=== PATIENT | male | born 1990 | race Caucasian/White ===

== ENCOUNTER 2020-09-05 17:24 | Emergency (ER) | payer OTHER, SELFPAY ==
[2020-09-05 17:34] VITALS: BP 109/70; PULSE 100; RESP 16; TEMP 37.8; O2SAT 99
--- NOTE | 2020-09-05 17:35 | ED.URI ---
HPI - URI/Sore Throat General Chief Complaint: Upper Respiratory Infection Stated Complaint: RUNNY NOSE/COUGH/SORE THROAT Source: patient and RN notes reviewed Limitations: no limitations History of Present Illness HPI Narrative: The patient, a smoker/nondrinker here with other sick family members, presents with sore throat and cough. He has not had Covid vaccination nor known disease. Patient states he has 1/2-week history of nasal congestion, chills and cough. No fever taken, vomiting/diarrhea, loss of taste/smell, wheezing, CP, travel, SOB ,sputum changes. Symptoms are mild somewhat worsened night, intruding on sleep. Point of care test for rapid Covid, influenza is negative. Related Data Allergies Allergy/AdvReac Type Severity Reaction Status Date / Time codeine AdvReac Gastrointestinal Verified 09/05/20 17:31 Upset BUPROPION HCL Allergy Mild HIVES Uncoded 02/03/19 14:44 Review of Systems Review of Systems: Narrative: General/Constitutional: No weight loss,fever Eyes: N0: Redness,discharge Ears/Nose/Throat: No: Epistaxis,ear discharge Respiratory: Denies: Hemoptysis Gastrointestinal: No Vomiting, Bleeding-rectal Skin: No Lumps, eruption Neurologic: No Focal Weakness,Sz Hematologic: Denies: Petechiae/Purpura Psychiatric: No: Suicida ideationl All Other Systems: Reviewed and Negative PMFSH Past Medical History Medical History (Updated 09/08/20 @ 08:54 by Varghese Martinez MD) Anxiety Attention deficit hyperactivity disorder (ADHD), combined type, moderate Chronic anxiety Encounter for wellness examination in adult Gastro-esophageal reflux disease without esophagitis Hypercalcemia Hypoglycemia Irritable bowel syndrome with diarrhea PTSD (post-traumatic stress disorder) Right sided sciatica Tobacco use disorder, continuous Social History Social History (Updated 05/23/20 @ 09:35 by Nadya Rothman MA) Years smoked: 15 Smoking status: Current every day smoker ( 1 pack of cigarettes weekly) Tobacco type: cigarettes Alcohol intake: never Substance use: current Substance use type: marijuana Comments At time of signature, agree with nursing past medical, surgical, social and family history. There is no relevant family history pertinent to the presenting complaint Exam Narrative: Exam Narrative: General Appearance: Well appearing, Well nourished EYE: PERRLA, Conjunctiva clear Ears: Auditory canal normal, TM normal Nose: Rhinorrhea, Mucousal erythema Mouth/Throat: MM moist, Uvula midline, Pharyngeal erythema Neck: Supple, No adenopathy Respiratory: No respiratory distress, Breath sounds equal, Clear to auscultation Cardiovascular: RRR, No JVD Musculoskeletal: Non tender, Normal strength Skin: Warm, Dry Neurological: A&O x3, CN II-XII intact Psychiatric: Normal mood, Normal affect Course Vital Signs Vital signs: Vital Signs Temperature 100.0 F H 09/05/20 17:34 Pulse Rate 100 09/05/20 17:34 Respiratory Rate 16 09/05/20 17:34 Blood Pressure 109/70 09/05/20 17:34 Pulse Oximetry 99 09/05/20 17:34 Temperature 100.0 F H 09/05/20 17:34 Pulse Rate 100 09/05/20 17:34 Respiratory Rate 16 09/05/20 17:34 Blood Pressure 109/70 09/05/20 17:34 Pulse Oximetry 99 09/05/20 17:34 MDM - URI/Sore Throat Lab Data Labs: Lab Results 09/05/20 Range/Units 17:37 POC SARS CoV-2 Ag Negative (Negative) Discharge Plan Discharge Clinical Impression: Influenza-like illness Fever Qualifiers: Fever type: unspecified Qualified Code(s): R50.9 - Fever, unspecified Patient Disposition: Home, Self-Care Condition: Stable Instructions: Antibiotic Form Additional Instructions: Try OTC supplements like vitamins D, C, B and zinc also Prescriptions: New azithromycin 250 mg tablet See Rx Instructions .ROUTE .COMPLEX Qty: 6 RF: 0 codeine-guaifenesin 10-100 mg/5 mL liquid 7.5 ml PO Q6H PRN (Reason: cough) Qty: 118 RF:
== END 2020-09-05 18:10 | disposition home or self-care (01) ==
PROVIDERS: Emergency Provider Emergency Medicine; PCP Family Medicine
DX: J10.1 Influenza due to other identified influenza virus with other respiratory manifestations (principal); R50.9 Fever, unspecified; Z20.822 Contact with and (suspected) exposure to COVID-19; F17.210 Nicotine dependence, cigarettes, uncomplicated; K21.9 Gastro-esophageal reflux disease without esophagitis; F90.9 Attention-deficit hyperactivity disorder, unspecified type; F41.9 Anxiety disorder, unspecified; F43.10 Post-traumatic stress disorder, unspecified
CPT/HCPCS: 87426; 87804; 99213; C9803; G0463

== ENCOUNTER 2022-09-12 11:12 | Emergency (ER) | payer OTHER, SELFPAY ==
[2022-09-12 11:42] VITALS: BP 157/99; PULSE 92; RESP 16; TEMP 37.5; O2SAT 100
--- NOTE | 2022-09-12 12:27 | ED.URI ---
HPI - URI/Sore Throat General Chief Complaint: Upper Respiratory Infection Stated Complaint: sore mouth/thoat; cough; fever; runny nose Time Seen by Provider: 09/12/22 12:27 Source: patient and RN notes reviewed Mode of arrival: ambulatory Limitations: no limitations History of Present Illness HPI Narrative: 32-year-old male presented for complaint of sinus congestion drainage, sore throat, cough, worsening over the past 2 days. He took a dose of an antihistamine without change in symptoms. He denies shortness of breath, wheezing, nausea, vomiting, fevers or chills. Has not taken anything for symptoms. denies sick contacts. MD elicited complaint: cough Related Data Allergies Allergy/AdvReac Type Severity Reaction Status Date / Time codeine AdvReac Gastrointestinal Verified 09/12/22 11:54 Upset BUPROPION HCL Allergy Mild HIVES Uncoded 09/12/22 11:54 Review of Systems Review of Systems: CONSTITUTIONAL: Endorses fever EYES: Denies visual changes, redness, or discharge ENT: Reports rhinorrhea, congestion, sore throat CARDIOVASCULAR: Denies chest pain, palpitations, edema RESPIRATORY: Reports cough, post nasal drainage. Denies dyspnea GASTROINTESTINAL: Denies abdominal pain, nausea, vomiting, diarrhea SKIN: Denies rash or itching MUSCULOSKELETAL: Denies myalgia PMFSH Past Medical History Medical History Attention deficit hyperactivity disorder (ADHD), combined type, moderate BMI 28.0-28.9,adult Chronic anxiety Encounter for wellness examination in adult Fever Gastro-esophageal reflux disease without esophagitis Hypercalcemia Calcium elevated at 10.6 on 03/27/2020. Hypoglycemia glucose 50 on 03/27/2020. 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) Right sided sciatica Tobacco use disorder, continuous Vaping nicotine dependence, tobacco product twice daily Social History Social History Years smoked: 15 Smoking status: Current every day smoker Tobacco type: e-cigarettes/vaping Alcohol intake: never Substance use: former Substance use type: former substance user Current Housing: Decline to Answer Concerned About Future Housing: Decline to Answer Difficulty Paying Gas/Electric Bills: Decline to Answer Difficulty Paying for Meds: Decline to Answer Currently Unemployed: Decline to Answer Education: Decline to Answer Difficulty w/ Childcare or Family Care: Decline to Answer Exam Narrative: GENERAL: mildly Ill-appearing, nontoxic no acute distress. HEAD: Normocephalic EYES: PERRLA, conjunctivae clear ENT: Mucous membranes moist. TM pearly nguyen with dull light reflex bilaterally; no tragal tenderness. Oropharynx erythematous without lesions or exudate, no drooling, no hoarseness, no trismus, uvula midline. No tripod positioning, muffled voice, soft palate or pharyngeal wall bulging NECK: Supple. No lymphadenopathy CHEST: Clear to auscultation, breath sounds equal. No wheezing, rhonchi, rales, or stridor. No respiratory distress, speaks in full sentences. HEART: Regular rate and rhythm. No murmur heard. SKIN: Warm, dry, no rash. NEURO: Alert and oriented x3. PSYCH: flat affect Course Course Emergency Course: Patient is aware of diagnosis, understands and agrees to treatment plan. Anticipatory guidance given. Patient agrees to follow-up as directed and is aware of reasons to seek care at the emergency department. Portions of this record may have been created with voice recognition software Level of Care: Express Care Visit Vital Signs Vital signs: Vital Signs Temperature 99.5 F 09/12/22 11:42 Pulse Rate 92 09/12/22 11:42 Respiratory Rate 16 09/12/22 11:42 Blood Pressure 157/99 H 09/12/22 11:42 Pulse Oximetry 100 09/12/22 11:42 Oxygen Delivery Room
== END 2022-09-12 12:48 | disposition home or self-care (01) ==
PROVIDERS: Emergency Provider Nurse Practitioner Family; PCP Family Medicine
DX: J02.9 Acute pharyngitis, unspecified (principal); Z20.822 Contact with and (suspected) exposure to COVID-19; F17.290 Nicotine dependence, other tobacco product, uncomplicated; F90.9 Attention-deficit hyperactivity disorder, unspecified type; F41.9 Anxiety disorder, unspecified; K21.9 Gastro-esophageal reflux disease without esophagitis
CPT/HCPCS: 87081; 87426; 87804; 87880; 99213; C9803; G0463

== ENCOUNTER 2022-11-24 12:22 | Emergency (ER) | payer OTHER, SELFPAY ==
--- NOTE | 2022-11-24 12:23 | ED.SKABFB ---
HPI - Skin/Abscess/Foreign Bdy General Chief complaint: Skin/Abscess/Foreign Body Stated complaint: Rash Time Seen by Provider: 11/24/22 12:22 Source: patient Mode of arrival: ambulatory Limitations: no limitations History of Present Illness HPI narrative: Mr. Hernandez is a 32-year-old male patient presenting to clinic today with complaints of a rash to his face, left hand, low back, and behind his ears times 1-2 days. He reports he thinks he may have gotten into poison luis when doing yd work. States the rash is itching and painful. Related Data Allergies Allergy/AdvReac Type Severity Reaction Status Date / Time codeine AdvReac Gastrointestinal Verified 09/12/22 11:54 Upset BUPROPION HCL Allergy Mild HIVES Uncoded 09/12/22 11:54 Review of Systems Review of Systems: Pertinent positives per HPI. Patient denies any fever, chills, rash, headache, visual changes, dizziness, cough, runny nose, sore throat, shortness of breath, chest pain, palpitations, nausea, vomiting, diarrhea, constipation, abdominal pain, or any urinary issues. PMFSH Past Medical History Medical History Attention deficit hyperactivity disorder (ADHD), combined type, moderate BMI 28.0-28.9,adult Chronic anxiety Encounter for wellness examination in adult Fever Gastro-esophageal reflux disease without esophagitis Hypercalcemia Calcium elevated at 10.6 on 03/27/2020. Hypoglycemia glucose 50 on 03/27/2020. 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) Right sided sciatica Tobacco use disorder, continuous Vaping nicotine dependence, tobacco product twice daily Social History Social History Years smoked: 15 Smoking status: Current every day smoker Tobacco type: e-cigarettes/vaping Alcohol intake: never Substance use: former Substance use type: former substance user Current Housing: Decline to Answer Concerned About Future Housing: Decline to Answer Difficulty Paying Gas/Electric Bills: Decline to Answer Difficulty Paying for Meds: Decline to Answer Currently Unemployed: Decline to Answer Education: Decline to Answer Difficulty w/ Childcare or Family Care: Decline to Answer Comments At the time of my signature, I reviewed and agree with the nursing past medical, surgical, social, and family history. There is no relevant family history pertinent to the patient complaint. Exam Narrative: General: Well-developed, well nourished, in no apparent distress Head: Normocephalic, atraumatic. Cardio: Regular rate and rhythm, s1 and s2 normal, no murmur appreciated. Resp: Clear to auscultation bilaterally, no rhonchi, rales, wheezing or rubs. Integumentary: [place], warm, and dry, red, raised, blister itchy/burning rash to the forehead, behind bilateral ears, on left hand, and on the low back Course Course Emergency Course: Portions of this record may have been created with voice recognition software. Level of Care: Express Care Visit Vital Signs Vital signs: Vital signs reviewed MDM - Skin/Abscess/Foreign Bdy MDM Narrative Medical decision making narrative: At the time of visit patient is resting comfortably on exam table. Dexamethasone 10 mg IM was given in the clinic today. Taper dose of prednisone was sent to the pharmacy and triamcinolone cream. Supportive measures were discussed with the patient he voiced understanding discharge instructions agrees to treatment plan. Differential Diagnosis Differential diagnosis: Likely abscess of skin or subcutaneous tissue, cellulitis, eczema, insect bites, impetigo and contact dermatitis Discharge Plan Discharge Clinical Impression: Allergic contact dermatitis due to plant Patient Disposition: Home, Self-Care Condition: Stable Instructions: Antibiotic Form,
[2022-11-24 12:49] VITALS: BP 128/84; PULSE 88; RESP 18; TEMP 36.9; O2SAT 100
== END 2022-11-24 12:56 | disposition home or self-care (01) ==
PROVIDERS: Emergency Provider Nurse Practitioner Family; PCP Family Medicine
DX: L23.7 Allergic contact dermatitis due to plants, except food (principal); F17.290 Nicotine dependence, other tobacco product, uncomplicated; F90.9 Attention-deficit hyperactivity disorder, unspecified type
CPT/HCPCS: 96372; 99213; G0463; J1100

== ENCOUNTER 2022-12-08 16:49 | Emergency (ER) | payer OTHER, SELFPAY ==
[2022-12-08 16:57] VITALS: BP 123/78; PULSE 98; RESP 18; TEMP 36.3; O2SAT 99
--- NOTE | 2022-12-08 16:59 | ED.SKABFB ---
HPI - Skin/Abscess/Foreign Bdy General Chief complaint: Skin/Abscess/Foreign Body Stated complaint: Rash Time Seen by Provider: 12/08/22 17:02 Source: patient and RN notes reviewed Mode of arrival: ambulatory Limitations: no limitations History of Present Illness HPI narrative: 32 year male presents with concern for ongoing rash on his penis. He reports he was seen 2 weeks ago and treated for poison luis dermatitis with steroids, steroid injection, steroid cream. Reports the rash has resolved except for area on his penis which continues to be itchy and is now become slightly swollen and tender. He reports he continues to use triamcinolone on the area MD complaint: rash Related Data Allergies Allergy/AdvReac Type Severity Reaction Status Date / Time codeine AdvReac Gastrointestinal Verified 09/12/22 11:54 Upset BUPROPION HCL Allergy Mild HIVES Uncoded 09/12/22 11:54 Review of Systems Review of Systems: CONSTITUTIONAL: Denies malaise, chills, sweats, or fever. RESPIRATORY: Denies cough or dyspnea. SKIN: Reports rash on his penis All systems reviewed & are unremarkable except as noted in HPI and below PMFSH Past Medical History Medical History Attention deficit hyperactivity disorder (ADHD), combined type, moderate BMI 28.0-28.9,adult Chronic anxiety Encounter for wellness examination in adult Fever Gastro-esophageal reflux disease without esophagitis Hypercalcemia Calcium elevated at 10.6 on 03/27/2020. Hypoglycemia glucose 50 on 03/27/2020. 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) Right sided sciatica Tobacco use disorder, continuous Vaping nicotine dependence, tobacco product twice daily Social History Social History Years smoked: 15 Smoking status: Current every day smoker Tobacco type: e-cigarettes/vaping Alcohol intake: never Substance use: former Substance use type: former substance user Current Housing: Decline to Answer Concerned About Future Housing: Decline to Answer Difficulty Paying Gas/Electric Bills: Decline to Answer Difficulty Paying for Meds: Decline to Answer Currently Unemployed: Decline to Answer Education: Decline to Answer Difficulty w/ Childcare or Family Care: Decline to Answer Comments At time of signature, agree with nursing past medical, surgical, social and family history. There is no relevant family history pertinent to the presenting complaint Exam Narrative: GENERAL: Well-appearing, well-nourished, and in no acute distress. HEAD: Normocephalic, atraumatic. EYES: PERRLA, conjunctivae clear, and EOMI. ENT: Mucous membranes moist. Oropharynx without edema, erythema or lesions. NECK: Supple. No lymphadenopathy CHEST: Clear to auscultation. No respiratory distress. HEART: Regular rate and rhythm. SKIN: Warm, dry. Raise patch of erythematous plaque with mild amount of erythema and induration surrounding noted to the shaft of the penis. No rash or excoriation noted in the groin NEURO: Alert and oriented x3. PSYCH: Normal mood and affect Course Course Emergency Course: Patient is aware of diagnosis, understands and agrees to treatment plan. Anticipatory guidance given. Patient agrees to follow-up as directed and is aware of reasons to seek care at the emergency department. Portions of this record may have been created with voice recognition software Level of Care: Express Care Visit Vital Signs Vital signs: Vital Signs Temperature 97.4 F L 12/08/22 16:57 Pulse Rate 98 12/08/22 16:57 Respiratory Rate 18 12/08/22 16:57 Blood Pressure 123/78 12/08/22 16:57 Pulse Oximetry 99 12/08/22 16:57 Oxygen Delivery Room Air 12/08/22 16:57 Temperature 97.4 F L 12/08/22 16:57 Pulse Rate 98 12/08/22 16:57 Resp
== END 2022-12-08 17:18 | disposition home or self-care (01) ==
PROVIDERS: Emergency Provider Nurse Practitioner; PCP Family Medicine
DX: L30.9 Dermatitis, unspecified (principal); N48.29 Other inflammatory disorders of penis; K21.9 Gastro-esophageal reflux disease without esophagitis; F17.290 Nicotine dependence, other tobacco product, uncomplicated
CPT/HCPCS: 99213; G0463

== ENCOUNTER 2022-12-27 16:29 | Emergency (ER) | payer OTHER, SELFPAY ==
--- NOTE | ~2022-12-27 | CT_ITS ---
EXAMINATION: CTA chest DATE: 12/27/2022 18:07 INDICATION: Tearing central chest pain radiating between shoulder blades TECHNIQUE: Computed tomographic angiography (CTA) of the chest was performed without and with 100 mL Omnipaque-350 intravenous contrast. Volume-rendered 3D-reconstructions of the aorta and large arterie s were constructed by the technologist on a separate workstation. Automated exposure control and iter ative reconstruction technique were employed. The dose-length product was 623.96 mGy-cm. COMPARISON: None. FINDINGS: Lungs are clear with no pulmonary edema, pneumonia or other pulmonary infiltrates. No pleural effusio n or pneumothorax. Heart size is normal. No pericardial effusion. Thoracic aorta is normal in caliber with no evident atherosclerotic plaque or dissection. Bilateral gynecomastia. No pathologically enla rged abdominal or pelvic lymphadenopathy. Visualized upper abdomen is unremarkable. Mild upper thorac ic levocurvature. IMPRESSION: 1. Normal thoracic aorta with no dissection. No other acute cardiopulmonary disease. Reviewed, dictated and finalized at location A. IMPRESSION: 1. Normal thoracic aorta with no dissection. No other acute cardiopulmonary dis ease.
[2022-12-27 16:31] VITALS: BP 137/95; PULSE 82; RESP 18; TEMP 36; O2SAT 100
--- NOTE | 2022-12-27 16:33 | ECG_ITS ---
Measurements Intervals [place] Rate: 81 P: 75 MS: 147 QRS: 41 QRSD: 98 T: 49 QT: 354 QTc: 412 Interpretive Statements SINUS RHYTHM WITH SINUS ARRHYTHMIA BORDERLINE ECG NO PREVIOUS ECG AVAILABLE FOR COMPARISON Electronically Signed On 12-28-2022 11:58:03 CDT by Varghese Durbin M.D.
[2022-12-27 16:47] VITALS: O2SAT 100
[2022-12-27 16:49] VITALS: O2SAT 100
[2022-12-27 16:53] VITALS: BP 123/92; PULSE 76; PULSE 81; RESP 18; O2SAT 100
--- NOTE | 2022-12-27 17:28 | ED.GENADULT ---
HPI - General Adult General Chief complaint: Chest Pain Stated complaint: 1.5 months chest tightness Time Seen by Provider: 12/27/22 17:06 Source: patient Mode of arrival: ambulatory Limitations: no limitations History of Present Illness HPI narrative: This is a 32-year-old male with PMH of anxiety, IBS, ADHD who presents to the ED with chief complaint of chest pain ongoing for the past 1.5 months. Patient states that he has a ripping, tearing pain in the central chest that will occasionally radiates to his back. He states this pain is intermittent. Reports that he also feels a separate pain in his back around his intrascapular area. Reports that radiates to the left. He states that he is very anxious about what is causing his chest pain. He states he has been seen by his primary care doctor and a burnisher and has had 9 negative cardiac markers, stress test, EKGs, x-rays but he would like answers today. He states he is very stressed recently and has been trying to change his ADHD medications. Currently taking Vyvanse. Denies hemoptysis, cough, fevers, chills, shortness of breath, vomiting, abdominal pain. Related Data Allergies Allergy/AdvReac Type Severity Reaction Status Date / Time codeine AdvReac Gastrointestinal Verified 12/27/22 16:49 Upset BUPROPION HCL Allergy Mild HIVES Uncoded 12/27/22 16:49 Review of Systems Review of Systems: All systems as dictated in [facility] Past Medical History Medical History Attention deficit hyperactivity disorder (ADHD), combined type, moderate BMI 28.0-28.9,adult Chest pain due to psychological stress Chronic anxiety Encounter for wellness examination in adult Fever Gastro-esophageal reflux disease without esophagitis Genital herpes Hypercalcemia Calcium elevated at 10.6 on 03/27/2020. Hypoglycemia glucose 50 on 03/27/2020. 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) Right sided sciatica Tobacco use disorder, continuous Vaping nicotine dependence, tobacco product twice daily Social History Social History (Updated 12/22/22 @ 15:32 by Nadya Rothman MA) Years smoked: 15 Smoking status: Current every day smoker Tobacco type: cigarettes Alcohol intake: never Substance use: former Substance use type: former substance user Current Housing: Decline to Answer Concerned About Future Housing: Decline to Answer Difficulty Paying Gas/Electric Bills: Decline to Answer Difficulty Paying for Meds: Decline to Answer Currently Unemployed: Decline to Answer Education: Decline to Answer Difficulty w/ Childcare or Family Care: Decline to Answer Exam Narrative: GENERAL: Well-appearing, well-nourished, and in no acute distress. HEAD: Normocephalic, atraumatic. EYES: PERRLA and EOMI. ENT: Nares clear, no rhinorrhea or epistaxis. Mucous membranes moist. Oropharynx without tonsillar hypertrophy exudate or other lesions. NECK: Supple. No adenopathy or masses. CHEST: No respiratory distress. Clear to auscultation. No wheezes rales or rhonchi HEART: Regular rate and rhythm. No murmur heard. Normal peripheral pulses. ABDOMEN: Soft, nontender, nondistended, normal active bowel sounds. MSK: Normal range of motion. No edema. SKIN: Warm, dry, no rash. NEURO: Alert and oriented x3. No focal deficits. PSYCH: Anxious mood. Appropriate affect. Course Vital Signs Vital signs: Vital Signs Temperature 96.8 F L 12/27/22 16:31 Pulse Rate 82 12/27/22 16:31 Respiratory Rate 18 12/27/22 16:31 Blood Pressure 137/95 H 12/27/22 16:31 Pulse Oximetry 100 12/27/22 16:31 Oxygen Delivery Room Air 12/27/22 16:31 Temperature 96.8 F L 12/27/22 16:31 Pulse Rate 89 12/27/22 18:08 Respiratory Rate 23 H 12/27/22 18:08 Blood Pressure 117/98 H 12/27/22 18:08 Pulse Oximetry 100 12/27
[2022-12-27 17:31] VITALS: BP 132/99; PULSE 77; RESP 22; O2SAT 100
[2022-12-27 17:51] LABS: Basophils Percent Auto 0.6 % (0.2-1.2); Eosinophils Absolute Auto 0.1 K/mm3 (0-0.3); Eosinophils Percent Auto 2.1 % (0-4.4); Hemoglobin 16.7 g/dL (14.0-18.0); Immature Granulocyte Absolute 0.01 K/mm3 (0.00-0.031); Immature Granulocyte Percent A 0.1 % (0-0.5); Mean Corpuscular HGB Conc 32.7 g/dl (32-36); Mean Corpuscular Hemoglobin 29.6 pg (26-34); Mean Corpuscular Volume 90.3 fl (80-100); Mean Platelet Volume 9.2 fl (7.4-10.4); Monocytes Absolute Auto 0.5 K/mm3 (0.1-0.6); Monocytes Percent Auto 8.1 % (2.6-8.5); Neutrophils Absolute Auto 3.7 K/mm3 (1.3-6.7); Neutrophils Percent Auto 56.1 % (45.5-73.1); Platelet Count Result 331 k/mm3 (150-375); Red Blood Count 5.65 M/mm3 (4.6-6.20); Red Cell Distribution Width 12.1 % (11.5-14.5); White Blood Count 6.7 K/mm3 (4.5-10.0)
[2022-12-27 17:59] LABS: Estimated CRCL calculation 94 ml/min; Estimated Glomerular Filt Rate > 60
[2022-12-27 18:08] VITALS: BP 117/98; PULSE 89; RESP 23; O2SAT 100
[2022-12-27 18:11] LABS: Alanine Aminotransferase 31 U/L (6-50); Albumin Level 4.7 g/dL (3.5-5.1); Alkaline Phosphatase 51 U/L (38-126); Anion Gap 7 mmol/L (8-16); Aspartate Amino Transferase 25 U/L (17-59); Bilirubin,Total 0.6 mg/dL (0.2-1.3); Blood Urea Nitrogen 12 mg/dL (9-20); Calcium 9.9 mg/dL (8.4-10.2); Carbon Dioxide 31 mmol/L (22-30); Chloride 102 mmol/L (98-107); Estimated CRCL calculation 124 ml/min; Estimated Glomerular Filt Rate > 60; Glucose 63 mg/dL (65-110); Lipase 102 U/L (23-300); Sodium 140 mmol/L (137-145)
[2022-12-27 18:23] LABS: Troponin I < 0.012 ng/mL (0.000-0.034)
== END 2022-12-27 19:05 | disposition home or self-care (01) ==
PROVIDERS: Emergency Provider Physician Assistant
DX: F41.9 Anxiety disorder, unspecified (principal); F17.210 Nicotine dependence, cigarettes, uncomplicated
CPT/HCPCS: 36415; 71275; 80053; 83690; 84484; 85025; 93005; 99284; Q9967

== ENCOUNTER 2023-01-23 09:22 | Emergency (ER) | payer OTHER, SELFPAY ==
[2023-01-23 09:31] VITALS: BP 119/91; PULSE 84; RESP 16; TEMP 36.8; O2SAT 100
--- NOTE | 2023-01-23 09:32 | ED.URI ---
HPI - URI/Sore Throat General Chief Complaint: Upper Respiratory Infection Stated Complaint: Runny Nose Time Seen by Provider: 01/23/23 09:34 Source: patient, RN notes reviewed and old records reviewed Mode of arrival: ambulatory Limitations: no limitations History of Present Illness HPI Narrative: 32-year-old male presents to the [facility] with with a runny nose since mowing the grass 3-4 days ago. Also reports intermittent cough worse at night. Has not taken anything for his symptoms. States that Zyrtec makes him jittery. Has history of seasonal allergies and anxiety Treatments prior to arrival: none Related Data Allergies Allergy/AdvReac Type Severity Reaction Status Date / Time codeine AdvReac Intermediate Gastrointestinal Verified 01/23/23 09:27 Upset BUPROPION HCL AdvReac Mild HIVES Uncoded 01/23/23 09:27 Review of Systems Review of Systems: All systems reviewed & are unremarkable except as noted in HPI and below Constitutional: Constitutional: Reports no additional constitutional complaints Eyes: Eyes: Reports no additional eye complaints ENT: Reports as per HPI Cardiovascular: Cardiovascular: Reports no additional cardiovascular complaints, Denies chest pain and Denies dyspnea Respiratory: Respiratory: Reports no additional respiratory complaints, Denies chest congestion, Denies cough and Denies dyspnea Gastrointestinal: Gastrointestinal: Reports no additional gastrointestinal complaints, Denies abdominal pain, Denies nausea and Denies vomiting Musculoskeletal: Musculoskeletal: Reports no additional musculoskeletal complaints Integumentary/Breasts: Skin/Breast: Reports system reviewed and no additional complaints, except as docu Neurologic: Reports system reviewed and no additional complaints, except as documented Psychiatric: Psychiatric: Reports no additional psychiatric complaints Allergic/Immunologic: Allergic/Immunologic: Reports no additional allergic/immunologic complaints [facility] Past Medical History Medical History Attention deficit hyperactivity disorder (ADHD), combined type, moderate BMI 28.0-28.9,adult Chest pain due to psychological stress Chronic anxiety Thyroid function normal with TSH 1.61, free T4 at 1.1, T3 total at 130 on 12/31/2022. Encounter for wellness examination in adult Fever Gastro-esophageal reflux disease without esophagitis Genital herpes Hypercalcemia Calcium elevated at 10.6 on 03/27/2020. Calcium normal at 10.2 with ionized calcium normal at 5.2 with PTH normal at 20 on 12/31/2022. Hypoglycemia glucose 50 on 03/27/2020. Fasting glucose 86 with hemoglobin A1c 5.1 on 12/31/2022. 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) Right sided sciatica Tobacco use disorder, continuous Vaping nicotine dependence, tobacco product twice daily Social History Social History Years smoked: 15 Smoking status: Current every day smoker Tobacco type: cigarettes Alcohol intake: never Substance use: former Substance use type: former substance user Current Housing: Decline to Answer Concerned About Future Housing: Decline to Answer Difficulty Paying Gas/Electric Bills: Decline to Answer Difficulty Paying for Meds: Decline to Answer Currently Unemployed: Decline to Answer Education: Decline to Answer Difficulty w/ Childcare or Family Care: Decline to Answer Comments At the time of my signature, I reviewed and agree with the nursing past medical, surgical, social, and family history. There is no relevant family history pertinent to the patient complaint. Exam Const: General: cooperative, healthy appearing, comfortable, no acute distress, well developed, alert and well nourished Nutritional Appearance: well nourished Orientation/consciousness: patient ish
== END 2023-01-23 09:51 | disposition home or self-care (01) ==
PROVIDERS: Emergency Provider Nurse Practitioner; PCP Family Medicine
DX: R09.82 Postnasal drip (principal); J30.2 Other seasonal allergic rhinitis; F17.210 Nicotine dependence, cigarettes, uncomplicated; K21.9 Gastro-esophageal reflux disease without esophagitis; F41.9 Anxiety disorder, unspecified; F90.9 Attention-deficit hyperactivity disorder, unspecified type
CPT/HCPCS: 99213; G0463

== ENCOUNTER 2023-03-20 20:06 | Emergency (ER) | payer OTHER, SELFPAY ==
--- NOTE | ~2023-03-20 | CT_ITS ---
EXAMINATION: CT thoracic spine w con DATE: 03/21/2023 01:01 INDICATION: Left-sided thoracic spine pain. TECHNIQUE: Computed tomography (CT) of the thoracic spine was performed with 75 mL Omnipaque 350 intr avenous contrast. Automated exposure control and iterative reconstruction technique were employed. e dose-length product was 1110.43 mGy-cm. COMPARISON: Chest CT 12/27/2022 FINDINGS: There is 11 degrees levoscoliosis of upper thoracic spine. There is mild chronic anterior w edging of T11-L1 vertebral bodies. Intervertebral disc heights are normal. There is multilevel mild f acet joint osteoarthritis. On the right, there is mild neural foraminal stenosis at T2-T3. No central canal stenosis. IMPRESSION: 1. Mild thoracic spondylosis. 2. Upper thoracic levoscoliosis. Reviewed, dictated and finalized at location E. FRONT END DEVELOPER
[2023-03-20 20:10] VITALS: BP 157/101; PULSE 84; RESP 16; TEMP 36.9; O2SAT 100
[2023-03-20 21:13] VITALS: BP 129/86; PULSE 77; RESP 15; O2SAT 100
--- NOTE | 2023-03-20 22:51 | ED.GENADULT ---
HPI - General Adult General Chief complaint: Back Pain/Injury <Temo Bui PA-C - Last Filed: 03/21/23 03:28> Stated complaint: Back pain, protrusion on left side. <Temo Bui PA-C - Last Filed: 03/21/23 03:28> Time Seen by Provider: 03/20/23 22:38 <Temo Bui PA-C - Last Filed: 03/21/23 03:28> Source: patient <LOIS Jacobs Last Filed: 03/21/23 03:28> Mode of arrival: ambulatory <LOIS Jacobs Last Filed: 03/21/23 03:28> Limitations: no limitations <Temo Bui PA-C - Last Filed: 03/21/23 03:28> History of Present Illness HPI narrative: This is a 32-year-old male who presents to the ED with chief complaint of upper back pain for the past 3 months. Patient reports the pain radiates/foods over into the shoulder and occasionally towards the chest. Denies any known injuries. States that the pain comes and goes at random. Patient reports he feels a ?protrusion? where the pain is located. He reports that he has had some chills, sweats and subjective fevers but also has been dealing with a dental infection. He has been taking antibiotics and ibuprofen. He has additional complaints of bright red/pink bleeding with BMs for the past couple of days. Denies LOC, neck pain, neck stiffness, lightheadedness, shortness of breath, cough, numbness, weakness, bladder dysfunction. States he has been taking a lot of ibuprofen but has not taken Tylenol. <Temo Bui PA-C - Last Filed: 03/21/23 03:28> Related Data Allergies/adverse reactions: Allergies Allergy/AdvReac Type Severity Reaction Status Date / Time codeine AdvReac Intermediate Gastrointestinal Verified 01/23/23 09:27 Upset BUPROPION HCL AdvReac Mild HIVES Uncoded 01/23/23 09:27 <LOIS Jacobs Last Filed: 03/21/23 03:28> Review of Systems Review of Systems: All systems as dictated in HPI <LOIS Jacobs Last Filed: 03/21/23 03:28> [facility] Past Medical History Medical History: Medical History Attention deficit hyperactivity disorder (ADHD), combined type, moderate BMI 28.0-28.9,adult Chest pain due to psychological stress Chronic anxiety Thyroid function normal with TSH 1.61, free T4 at 1.1, T3 total at 130 on 12/31/2022. Encounter for wellness examination in adult Fever Gastro-esophageal reflux disease without esophagitis Genital herpes Hypercalcemia Calcium elevated at 10.6 on 03/27/2020. Calcium normal at 10.2 with ionized calcium normal at 5.2 with PTH normal at 20 on 12/31/2022. Hypoglycemia glucose 50 on 03/27/2020. Fasting glucose 86 with hemoglobin A1c 5.1 on 12/31/2022. 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) Right sided sciatica Tobacco use disorder, continuous Vaping nicotine dependence, tobacco product twice daily <Temo Bui PA-C - Last Filed: 03/21/23 03:28> Social History Social History: Social History Years smoked: 15 Smoking status: Current every day smoker Tobacco type: cigarettes Alcohol intake: never Substance use: former Substance use type: former substance user Current Housing: Decline to Answer Concerned About Future Housing: Decline to Answer Difficulty Paying Gas/Electric Bills: Decline to Answer Difficulty Paying for Meds: Decline to Answer Currently Unemployed: Decline to Answer Education: Decline to Answer Difficulty w/ Childcare or Family Care: Decline to Answer <Temo Bui PA-C - Last Filed: 03/21/23 03:28> Exam Narrative: GENERAL: Well-appearing, well-nourished, and in no acute distress. HEAD: Normocephalic, atraumatic. EYES: PERRLA and EOMI. ENT: Nares clear, no rhinorrhea or epistaxis. Mucous membranes moist. Oropharynx without tonsillar hypertrophy exudate or other lesions. N
--- NOTE | 2023-03-20 22:52 | ECG_ITS ---
Measurements Intervals Claude Rate: 64 P: 66 UT: 154 QRS: 32 QRSD: 108 T: 35 QT: 375 QTc: 388 Interpretive Statements SINUS RHYTHM WITH SINUS ARRHYTHMIA NORMAL ECG COMPARED TO ECG 12/27/2022 16:36:24 NO SIGNIFICANT CHANGES Electronically Signed On 03-21-2023 6:57:50 WEB WORKER by Roman Hayes D.O.
[2023-03-20 23:28] LABS: Basophils Percent Auto 0.6 % (0.2-1.2); Eosinophils Absolute Auto 0.1 K/mm3 (0-0.3); Eosinophils Percent Auto 1.7 % (0-4.4); Hematocrit 46.1 % (42.0-52.0); Immature Granulocyte Absolute 0.01 K/mm3 (0.00-0.031); Immature Granulocyte Percent A 0.1 % (0-0.5); Lymphocytes Absolute Auto 2.87 K/mm3 (0.9-3.2); Lymphocytes Percent Auto 40.3 % (18.3-44.2); Mean Corpuscular HGB Conc 32.5 g/dl (32-36); Mean Corpuscular Hemoglobin 29.7 pg (26-34); Mean Corpuscular Volume 91.3 fl (80-100); Mean Platelet Volume 9.3 fl (7.4-10.4); Monocytes Absolute Auto 0.5 K/mm3 (0.1-0.6); Monocytes Percent Auto 7.3 % (2.6-8.5); Neutrophils Absolute Auto 3.6 K/mm3 (1.3-6.7); Platelet Count Result 320 k/mm3 (150-375); Red Blood Count 5.05 M/mm3 (4.6-6.20); Red Cell Distribution Width 12.1 % (11.5-14.5); White Blood Count 7.1 K/mm3 (4.5-10.0)
[2023-03-20 23:43] LABS: Alanine Aminotransferase 35 U/L (6-50); Albumin Level 4.4 g/dL (3.5-5.1); Alkaline Phosphatase 38 U/L (38-126); Anion Gap 7 mmol/L (8-16); Aspartate Amino Transferase 30 U/L (17-59); Bilirubin,Total 0.6 mg/dL (0.2-1.3); Blood Urea Nitrogen 17 mg/dL (9-20); Calcium 9.4 mg/dL (8.4-10.2); Carbon Dioxide 28 mmol/L (22-30); Chloride 104 mmol/L (98-107); Estimated CRCL calculation 138 ml/min; Estimated Glomerular Filt Rate > 60; Glucose 106 mg/dL (65-110); Potassium 4.2 mmol/L (3.4-5.0); Sodium 139 mmol/L (137-145)
[2023-03-21 02:50] VITALS: BP 126/93; PULSE 76; RESP 15; O2SAT 99
[2023-03-21 05:09] VITALS: BP 130/72; PULSE 78; RESP 18; O2SAT 99
== END 2023-03-21 05:23 | disposition home or self-care (01) ==
PROVIDERS: Physician Assistant; Emergency Provider Student in an Organized Health Care Education/Training Program; PCP Family Medicine
DX: M54.6 Pain in thoracic spine (principal); K21.9 Gastro-esophageal reflux disease without esophagitis; K58.0 Irritable bowel syndrome with diarrhea; E66.3 Overweight; Z68.26 Body mass index [BMI] 26.0-26.9, adult; F90.2 Attention-deficit hyperactivity disorder, combined type; F43.10 Post-traumatic stress disorder, unspecified; F41.9 Anxiety disorder, unspecified; F17.210 Nicotine dependence, cigarettes, uncomplicated; F17.290 Nicotine dependence, other tobacco product, uncomplicated
CPT/HCPCS: 36415; 72129; 80053; 85025; 93005; 99284; Q9967

== ENCOUNTER 2023-05-27 14:41 | Emergency (ER) | payer OTHER, SELFPAY ==
[2023-05-27 15:03] VITALS: BP 138/83; PULSE 89; RESP 18; TEMP 36.9; O2SAT 99
--- NOTE | 2023-05-27 15:27 | ED.UPPEXIN ---
HPI - Extremity Injury (Upper) General Chief Complaint: Extremity Injury, Upper Stated Complaint: lt shoulder and middle back pain Source: patient and old records reviewed Mode of arrival: ambulatory Limitations: no limitations History of Present Illness HPI narrative: Que is a 32-year-old male patient presenting to the clinic today with complaints of left shoulder/midback pain this been going on for several months. He states that is been going on for over 5 months at least. Reports that symptoms started when he picked up a 400-500 lb log without using his legs. Has been concerned about his heart has been to the ER and had a CTA of his chest as well as x-rays completed and the CTA was within normal limits. His thoracic x-rays did show some minimal spondylosis Related Data Home Medications Medication Instructions Recorded Confirmed ibuprofen 600 mg tablet mg 05/27/23 05/27/23 Allergies Allergy/AdvReac Type Severity Reaction Status Date / Time codeine AdvReac Intermediate Gastrointestinal Verified 05/27/23 15:02 Upset BUPROPION HCL AdvReac Mild HIVES Uncoded 05/27/23 15:02 Review of Systems Review of Systems: Pertinent positives per HPI. Patient denies any fever, chills, rash, headache, visual changes, dizziness, cough, shortness of breath, chest pain, palpitations, nausea, vomiting, diarrhea, constipation, abdominal pain, or any urinary issues. [facility], [facility] Past Medical History Medical History Abscessed tooth left upper 1st molar Acute non-recurrent maxillary sinusitis Attention deficit hyperactivity disorder (ADHD), combined type, moderate BMI 26.0-26.9,adult BMI 28.0-28.9,adult Chest pain due to psychological stress Chronic anxiety Thyroid function normal with TSH 1.61, free T4 at 1.1, T3 total at 130 on 12/31/2022. Encounter for wellness examination in adult Fever Gastro-esophageal reflux disease without esophagitis Genital herpes Hypercalcemia Calcium elevated at 10.6 on 03/27/2020. Calcium normal at 10.2 with ionized calcium normal at 5.2 with PTH normal at 20 on 12/31/2022. Hypoglycemia glucose 50 on 03/27/2020. Fasting glucose 86 with hemoglobin A1c 5.1 on 12/31/2022. 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 twice daily Social History Social History Years smoked: 15 Smoking status: Current every day smoker Tobacco type: cigarettes Alcohol intake: never Substance use: former Substance use type: former substance user Current Housing: Decline to Answer Concerned About Future Housing: Decline to Answer Difficulty Paying Gas/Electric Bills: Decline to Answer Difficulty Paying for Meds: Decline to Answer Currently Unemployed: Decline to Answer Education: Decline to Answer Difficulty w/ Childcare or Family Care: Decline to Answer Comments At the time of my signature, I reviewed and agree with the nursing past medical, surgical, social, and family history. There is no relevant family history pertinent to the patient complaint. Exam Narrative: General: Well-developed, well nourished, in no apparent distress Head: Normocephalic, atraumatic. Cardio: Regular rate and rhythm, s1 and s2 normal, no murmur appreciated. Resp: Clear to auscultation bilaterally, no rhonchi, rales, wheezing or rubs. Musculoskeletal: No deformity, tender to palpation over the left rhomboid musculature, no pain with empty can, full can, or woodall testing of the shoulder, negative drop-arm test, grossly normal range of motion, muscle strength strong and equal, peripheral pulse strong, no edema, no cyanosis, normal gait and station Course Course Emergency Cou
== END 2023-05-27 15:40 | disposition home or self-care (01) ==
PROVIDERS: Emergency Provider Nurse Practitioner Family; PCP Family Medicine
DX: S29.012A Strain of muscle and tendon of back wall of thorax, initial encounter (principal); F17.210 Nicotine dependence, cigarettes, uncomplicated; X58.XXXA Exposure to other specified factors, initial encounter
CPT/HCPCS: 99213; G0463